=== PATIENT | male | born 1990 | race Hispanic/Latino ===

== ENCOUNTER 2017-08-10 07:26 | Day surgery (SDC) | payer OTHER ==
[~2017-08-10] VITALS: Ht 175.3 cm; Wt 83.5 kg
[~2017-08-10 07:26] MED LIST: SODIUM CHLORIDE 0.9% 1000ML 1,000 ML IV ONE
[2017-08-10 07:50] VITALS: BP 128/71
[2017-08-10] MEDS ORDERED: MIDAZOLAM HCL 1 MG/ML 2ML VIAL ONE ×2 (08:15→08:21)
[2017-08-10] MEDS ORDERED: MEPERIDINE-PF 50 MG/ML SYG ONE ×2 (08:15→08:21)
[2017-08-10 08:31] VITALS: BP 108/56
== END 2017-08-10 09:05 | disposition home or self-care (01) ==
LOC: SUH 07:26 → DAH 07:26 → SUH 09:05
PROVIDERS: ATTEND Internal Medicine
DX: K31.89 Other diseases of stomach and duodenum (principal); Z98.890 Other specified postprocedural states
CPT/HCPCS: 43239; 88305; 88313; 99156; A4606; J2175 ×2; J2250 ×2; J7030